=== PATIENT | male | born 2005 | race Caucasian/White ===

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

== ENCOUNTER 2024-12-22 13:14 | Outpatient (CLI) | payer OTHER, SELFPAY ==
[2024-12-22 13:49] LABS: Mean Corpuscular HGB Conc 34.1 g/dl (32-36); Mean Corpuscular Hemoglobin 30.2 pg (26-34); Mean Corpuscular Volume 88.7 fl (80-100); Mean Platelet Volume 9.2 fl (7.4-10.4); Platelet Count Result 206 k/mm3 (150-375); Red Blood Count 4.96 M/mm3 (4.6-6.20); Red Cell Distribution Width 11.5 % (11.5-14.5); White Blood Count 8.2 K/mm3 (4.5-10.0)
[2024-12-22 13:53] LABS: Alanine Aminotransferase 21 U/L (6-50); Albumin Level 4.9 g/dL (3.5-5.1); Alkaline Phosphatase 69 U/L (38-126); Anion Gap 9 mmol/L (4-12); Aspartate Amino Transferase 14 U/L (17-59); Bilirubin,Total 0.6 mg/dL (0.2-1.3); Blood Urea Nitrogen 7 mg/dL (9-20); Calcium 9.8 mg/dL (8.4-10.2); Carbon Dioxide 27 mmol/L (22-30); Chloride 105 mmol/L (98-107); Estimated Glomerular Filt Rate > 60; Glucose 97 mg/dL (65-110); Potassium 3.8 mmol/L (3.4-5.0); Sodium 141 mmol/L (137-145)
--- OUTSIDE RECORDS SUMMARY | 2024-12-22 14:24 | XMS_ITS | Continuity of Care Document ---
Author Organization [facility] Address [address] [employer] [facility] [place] [address] Phone Care Team Providers Care Quoter Name Role Phone Jayy Van MD Unavailable Unavailable Allergies, Adverse Reactions, Alerts Substance Reaction Status Criticality latex Itching of skin Active No Informati on Medications Medication Instructions Dosage Effective Dates (start - stop) Status Comments Cymbalta 60 mg capsule,delayed release take 1 capsule by oral route every day 60 MG - Active Imitrex 50 mg tablet take [...] Providers Copied on Encounter OFFICE/OUTPA TIENT VISIT, [facility], [address] [place], [place], [id number], tel:[phone] [facility] anxiety1 (chief complaint) migraine1 (chief complaint) Generalized Anxiety DisorderMigraine w/o aura, not intractable, w/o status migrainosus 4 Rehan Hope. [address] [place], [place], [id number] , [place]. tel:[phone] OFFICE/OUTPA TIENT VISIT, [facility], [address] [place], [id number], tel:[phone] [facility] anxiety1 (chief complaint) headache1 (chief complaint) Migraine w/o aura, not intractable, w/o status migrainosusGenerali zed Anxiety Disorder 4 Rehan Hope. [address], [place], [place], [id number] , . [phone] [facility], [address], [place], [place], [id number], [place] tel:[phone] [facility] No Information 4 Rehan Hope. [address], [place], [place], [address] , [place]. tel:[phone] PREV VISIT, NEW, AGE 18-39 [facility], [address], [place], [place], [address], [place] tel:[phone] [facility] physical (chief complaint) Encounter for general adult medical examination without abnormal findings 4 Rehan Hope. [address], [address], [place], [place], [address] , [place]. tel:[phone] Family History Family Member Type Diagnosis Age At Onset Mother Problem Alive and well Father Problem ? Stroke 40s Brother Problem Alive and well Mother Problem Migraines Sister Problem Depression Payers Payer name Insurance type Covered democrat ID Authoriza tion(s) No Information Social History [...] Date Complaint History Of Prese nt Illness anxiety1 Pt has chronic a nxiety and depression. pt states that effexor did help his anxiety but he feels more depressed while on effexor .Pt denies any suicidal or homicidal thought. pt denies any crying spells Pt also feels numb feeling emotionally. migraine1 Pt states that h is migraine actually is better and he states that imitrex did help his migraine Pt denies any head injury or waking up at night with headache Pt thinks that effexor did help his migraine. headache1 Pt has chronic m igraine headache [...] better recently pt denies any acute headache anxiety1 Pt has chronic a nxiety and depression Pt denies any suicidal or homicidal thought Pt denies any crying spells. Pt tried some SSRI in the past which did not work. physical Pt needs annual physical Pt has [...] Mental Status Date Cognitive Assessment Orientation - [place] ed to time, place, person, situation.
--- OUTSIDE RECORDS SUMMARY | 2024-12-22 14:24 | XMS_ITS | Patient Health Record ---
Author Organization [facility] Address [address] [facility] [address] [place] [address] Care Team Providers Care Adhesive Sprayer Name Role Phone Gerardo WELSH, Surjit Primary Care Provider UnavailViv Estes Unavailable [phone] Suresh Sukhdev Unavailable [phone] Glenroy Gordon Unavailable [phone] Allergies No Known Allergies Results Component Value Reference Range Notes UDT Reviewed date:10/11/2024 11:15:19 AM Interpretation: Performing Lab: Notes/Report: THC P 0 - 50 ng/ml Cocaine N 0 - 300 ng/ml Amphetamine N 0 - 1000 ng/ml Buprenorphine (BUP) N 0 - 10 ng/ml Secobarbital (Bar) N 0 - 300 ng/ml Oxazepam (BZO) N 0 - 300 ng/ml 6-ruqzznccny-4,8-qzlimwnk-9,3-diphenylpyrrolidine (ROMELIA P) N 0 - 300 ng/ml Methamphetamine (MET) N 0 - 1000 ng/ml Methylenedioxymethamphetamine (MDMA) N 0 - 500 ng/ml Morphine (MOP 300/[id number]) N 0 - 300 ng/ml Methadone (MTD) N 0 - 300 ng/ml Phencyclidine (PCP) N 0 - 25 ng/ml Nortriptyline (TCA) N 0 - 1000 ng/ml x N 0 - 300 ng/ml UDT Reviewed date:08/20/2024 09:59:24 AM Interpretation: Performing Lab: Notes/Report: THC POS 0 - 50 ng/ml Cocaine NEG 0 - 300 ng/ml Amphetamine NEG 0 - 1000 ng/ml Buprenorphine (BUP) NEG 0 - 10 ng/ml Secobarbital (Bar) NEG 0 - 300 ng/ml Oxazepam (BZO) POS 0 - 300 ng/ml 7-ngmriuufaq-2,6-shclkdhn-1,3-diphenylpyrrolidine (ROMELIA P) NEG 0 - 300 ng/ml Methamphetamine (MET) NEG 0 - 1000 ng/ml Methylenedioxymethamphetamine (MDMA) NEG 0 - 500 ng/ml Morphine (MOP 300/[id number]) NEG 0 - 300 ng/ml Methadone (MTD) NEG 0 - 300 ng/ml Phencyclidine (PCP) NEG 0 - 25 ng/ml Nortriptyline (TCA) NEG 0 - 1000 ng/ml Oxycodone NEG 0 - 300 ng/ml x NEG 0 - 300 ng/ml Reason For Referral No Information Medications Medication SIG (Take, Route, Frequency, Duration) Notes Start Date End Date Status hydrOXYzine Pamoate 25 MG 1 capsule Oral ly three times a day for 30 days Active hydrOXYzine Pamoate 25 MG 1 capsule at b edtime as needed Orally Once a day 08/20/2024 Active Sertraline HCl 100 MG 1 tablet Orally On ce a day for 30 days Active Social History Tobacco Use: Social History Observation Description Date Details (start date - stop date) Never Smoker NA - NA Sex Assigned At : Social History Observation Description Sex Assigned At Male Tobacco Control (Standard) Question Answer Notes Tobacco use: Nonsmoker Problems Problem Type SNOMED Code ICD Code Onset Dates Problem Status W/U Status Risk Notes Problem [id number] JAMES (generalized anxiety disorder) (F41.1) Active confirmed Problem Attention deficit hyperactivity disorder ([id number]) ADHD (attention deficit hyperactivity disorder), combined type (F90.2) Active confirmed The high cognitive scores suggest strong spatial planning, working memory, attention, and response inhibition skills.ADHD Assessment: The Part A score of 6 exceeds the threshold for ADHD, indicating symptoms consistent with ADHD. Part B's score of 7 further supports this.THC Positive: The presence of THC may affect cognitive functions, particularly executive functioning and attention regulation. Problem [id number] MDD (major depressive disorder), severe (F32.2) Active confirmed Vital Signs Heart Rate 87 /min 08/20/2024 Blood pressure diastolic 64 mm Hg 08/20/2024 Weight-kg 54.98 kg 08/20/2024 Blood pressure systolic 119 mm Hg 08/20/2024 Weight 121.2 lbs 08/20/2024 Procedures Procedure Date Ordered Date Performed Result Body Sit e ADHD Testing 09/25/2024 N/A Cannabis Cognitive Testing 09/25/2024 N/A Encounters Encounter Location Date Provider Diagnosis [facility], [place] [address] [facility] [address] [address] 08/20/2024 Glenroy Gordon MDD (major depressiv e disorder), severe F32.2 and JAMES (generalized anxiety disorder) F41.[address] [address] 09/25/2024 Viv Vasquez MDD (major depressiv e disorder), severe F32.2 ; JAMES (generalized anxiety disorder) F41.1 and ADHD (attention deficit hyperactivity disorder), combined type F90.[address] [address] 10/09/2024 Sukhdev Prince Lack of concentratio n R41.840 [facility] [address] [address] 10/13/2024 Viv Vasquez MDD (major depressiv e disorder), severe F32.2 ; JAMES (generalized anxiety disorder) F41.1 and ADHD (attention deficit hyperactivity disorder), combined type F90.[address] [address] 11/12/2024 Viv Vasquez [address] [address] 11/17/2024 Viv Vasquez Assessments Encounter Date Diagnosis (ICD Code) Assessment Notes Treatment Notes Treatment Clinical Notes Section Notes 08/20/2024 JAMES (generalized anxiety disorder) (ICD-10 - F41.1) 1. Major Depressive Disorder (MDD) - Plan: Restart sertraline 50 mg daily for 30 days. Encourage the patient to stay on the medication for 4 to 6 weeks to assess its effectiveness. Schedule a follow-up appointment in one month to evaluate the response to sertraline. Educate the patient on the mechanism of action and potential side effects of sertraline. 2. Generalized Anxiety Disorder (JAMES) - Plan: Discontinue clonazepam and initiate hydroxyzine as needed for anxiety, up to 3 times a day, with a maximum of 2 tablets per dose. Encourage the patient to take hydroxyzine when anxiety starts, not at its peak. Advise the patient to limit caffeine intake to under 400 mg per day. 3. Attention Deficit Hyperactivity Disorder (ADHD) - Plan: Continue Vyvanse as prescribed. Monitor the patient's response during the follow-up appointment. 4. Dissociative symptoms - Plan: Encourage the patient to increase the frequency of therapy sessions to address the underlying causes of dissociation and anxiety. Work with the therapist to identify triggers and develop coping strategies. 5. Suicidal ideation - Plan: Provide the patient with the crisis number (988) for immediate support if needed. Encourage the patient to reach out to his support system, including his father and therapist. Offer the option to come in for an unscheduled appointment if necessary. discussed when to seek emergency services. - patient lives with family and has a support system. 6. Sleep disturbances - Plan: Monitor sleep quality during the follow-up appointment. Consider alternative sleep aids if sleep disturbances persist. 7. Medication management - Plan: Educate the patient on the importance of medication adherence and the potential benefits of treatment. Encourage the patient to discuss any concerns or side effects during follow-up appointments. Address the patient's concerns about researching medication side effects online and encourage discussing concerns with healthcare providers instead of relying on internet sources. 08/20/2024 MDD (major depressive disorder), severe (ICD-10 - F32.2) 1. Major Depressive Disorder (MDD) - Plan: Restart sertraline 50 mg daily for 30 days. Encourage the patient to stay on the medication for 4 to 6 weeks to assess its effectiveness. Schedule a follow-up appointment in one month to evaluate the response to sertraline. Educate the patient on the mechanism of action and potential side effects of sertraline. 2. Generalized Anxiety Disorder (JAMES) - Plan: Discontinue clonazepam and initiate hydroxyzine as needed for anxiety, up to 3 times a day, with a maximum of 2 tablets per dose. Encourage the patient to take hydroxyzine when anxiety starts, not at its peak. Advise the patient to limit caffeine intake to under 400 mg per day. 3. Attention Deficit Hyperactivity Disorder (ADHD) - Plan: Continue Vyvanse as prescribed. Monitor the patient's response during the follow-up appointment. 4. Dissociative symptoms - Plan: Encourage the patient to increase the frequency of therapy sessions to address the underlying causes of dissociation and anxiety. Work with the therapist to identify triggers and develop coping strategies. 5. Suicidal ideation - Plan: Provide the patient with the crisis number (988) for immediate support if needed. Encourage the patient to reach out to his support system, including his father and therapist. Offer the option to come in for an unscheduled appointment if necessary. discussed when to seek emergency services. - patient lives with family and has a support system. 6. Sleep disturbances - Plan: Monitor sleep quality during the follow-up appointment. Consider alternative sleep aids if sleep disturbances persist. 7. Medication management - Plan: Educate the patient on the importance of medication adherence and the potential benefits of treatment. Encourage the patient to discuss any concerns or side effects during follow-up appointments. Address the patient's concerns about researching medication side effects online and encourage discussing concerns with healthcare providers instead of relying on internet sources. 09/25/2024 MDD (major depressive disorder), severe (ICD-10 - F32.2) SSRI/SNRI side effects discussed including but not limited to, gastric upset, nausea, vomiting, diarrhea and/or constipation, weight changes, sexual side effects including loss of libido, increased suicidal thoughts/behaviors in children and young adults, and serotonin syndrome. SSRIs and Marijuana: Cannabidiol, or CBD, in marijuana can increase the levels of SSRIs in your bloodstream because CBD blocks your body from clearing the antidepressant as quickly as normal. Having increased levels of serotonin in your body from SSRI use can cause a potentially fatal condition called serotonin syndrome. 10/09/2024 Lack of concentration (ICD-10 - R41.840) Assessment Summary for 18-Year-Old Male Chun Findings: Outside Typical Range: Cognitive markers indicate atypical performance. ASRS ADHD Screening: Part A Score = 6 (indicative), Part B Score = 7. Cognitive Performance: Spatial Planninth percentile (above average) Token Search (Working Memory): 92nd percentile (high) Feature Match (Attention): 92nd percentile (high) Double Trouble (Response Inhibition): 96th percentile (very high) Interpretation: The high cognitive scores suggest strong spatial planning, working memory, attention, and response inhibition skills. ADHD Assessment: The Part A score of 6 exceeds the threshold for ADHD, indicating symptoms consistent with ADHD. Part B's score of 7 further supports this. THC Positive: The presence of THC may affect cognitive functions, particularly executive functioning and attention regulation. Recommendations: Consider Non-Stimulant ADHD Medications: Given the cognitive profile and THC use, non-stimulant ADHD medications (e.g., atomoxetine, guanfacine) may be more suitable. THC Cessation: THC can negatively impact executive function, working memory, and attention. Stopping use may improve cognitive clarity and ADHD symptoms. Behavioral and Lifestyle Interventions: Cognitive Behavioral Therapy (CBT) for ADHD symptom management. Structured Routines to enhance executive function and reduce inattention. Physical Exercise to improve focus and impulse control. 10/13/2024 JAMES (generalized anxiety disorder) (ICD-10 - F41.1) 10/13/2024 MDD (major depressive disorder), severe (ICD-10 - F32.2) SSRI/SNRI side effects discussed including but not limited to, gastric upset, nausea, vomiting, diarrhea and/or constipation, weight changes, sexual side effects including loss of libido, increased suicidal thoughts/behaviors in children and young adults, and serotonin syndrome. SSRIs and Marijuana: Cannabidiol, or CBD, in marijuana can increase the levels of SSRIs in your bloodstream because CBD blocks your body from clearing the antidepressant as quickly as normal. Having increased levels of serotonin in your body from SSRI use can cause a potentially fatal condition called serotonin syndrome. 10/13/2024 ADHD (attention deficit hyperactivity disorder), combined type (ICD-10 - F90.2) The high cognitive scores suggest strong spatial planning, working memory, attention, and response inhibition skills.ADHD Assessment: The Part A score of 6 exceeds the threshold for ADHD, indicating symptoms consistent with ADHD. Part B's score of 7 further supports this.THC Positive: The presence of THC may affect cognitive functions, particularly executive functioning and attention regulation. Discussed risks/benefits/alt ernatives to atomoxetine, including GI side effects, weight loss, irritability, constipation, sexual dysfunction, increase in blood pressure and liver damage. Patient denies any h/o cardiovascular disease, including hypertension, tachyarrhythmias. no stimulant, cannabis use 09/25/2024 JAMES (generalized anxiety disorder) (ICD-10 - F41.1) 09/25/2024 ADHD (attention deficit hyperactivity disorder), combined type (ICD-10 - F90.2) Pre-treatment evaluation and contraindications Before initiating treatment with a stimulant in adults, we review their cardiovascular history, including chest pain, palpitations, syncope, myocardial infarction, arrhythmia, valvular disease, and family history. We measure blood pressure and pulse in all patients and obtain an electrocardiogram (ECG) in individuals with cardiac history or cardiac symptoms such as palpitations or chest pain. In individuals with a cardiac history, or when findings outside normal limits are seen, we consult a level designer to determine whether the results are sufficiently severe to avoid these medications. We also rule out COURT; if you are using cannabis, are heavy alcohol, or are using other street drugs and have a history of COURT, than we consider non-stimulant treatment. We also do routine and random UDT If you refuse or fail to give urine for urine, then we will not prescribe controlled substances. If your urine comes positive for medicine (which are not prescribed to you) and illicit drugs (including Cannabis) then we will not prescribe a controlled substance There is a charge for Stimulant refills DIAGNOSIS PENDING EVAL 08/20/2024 Other Learning About Depression Screening material was printed Assessment and plan reviewed with patient Call for problems with medication, side effects or need for dosage change Compliance issues reviewed Discussed the risks/benefits of this medication Discussed medication side effects Return if symptoms worsen Treatment options reviewed. discussed that it can take weeks to see full therapeutic effects of psychotropic medications. discussed when to seek emergency services. discussed crisis prevention hotline 988. Learning About Depression Screening material was printed 1. Major Depressive Disorder (MDD) - Plan: Restart sertraline 50 mg daily for 30 days. Encourage the patient to stay on the medication for 4 to 6 weeks to assess its effectiveness. Schedule a follow-up appointment in one month to evaluate the response to sertraline. Educate the patient on the mechanism of action and potential side effects of sertraline. 2. Generalized Anxiety Disorder (JAMES) - Plan: Discontinue clonazepam and initiate hydroxyzine as needed for anxiety, up to 3 times a day, with a maximum of 2 tablets per dose. Encourage the patient to take hydroxyzine when anxiety starts, not at its peak. Advise the patient to limit caffeine intake to under 400 mg per day. 3. Attention Deficit Hyperactivity Disorder (ADHD) - Plan: Continue Vyvanse as prescribed. Monitor the patient's response during the follow-up appointment. 4. Dissociative symptoms - Plan: Encourage the patient to increase the frequency of therapy sessions to address the underlying causes of dissociation and anxiety. Work with the therapist to identify triggers and develop coping strategies. 5. Suicidal ideation - Plan: Provide the patient with the crisis number (988) for immediate support if needed. Encourage the patient to reach out to his support system, including his father and therapist. Offer the option to come in for an unscheduled appointment if necessary. discussed when to seek emergency services. - patient lives with family and has a support system. 6. Sleep disturbances - Plan: Monitor sleep quality during the follow-up appointment. Consider alternative sleep aids if sleep disturbances persist. 7. Medication management - Plan: Educate the patient on the importance of medication adherence and the potential benefits of treatment. Encourage the patient to discuss any concerns or side effects during follow-up appointments. Address the patient's concerns about researching medication side effects online and encourage discussing concerns with healthcare providers instead of relying on internet sources. 09/25/2024 Other Increase sertraline to 100mg daily for mood, anxiety. Patient educated on all medications including potential benefits, side effects, risks. Educated on proper dosing schedule and importance of compliance. Discussed office policy for stimulants and cannabis use. -Schedule for ADHD and cannabis cognitive testing prior to initiating medication. ADHD symptoms could be caused by cannabis use, anxiety and depression. -Assessment and treatment plan reviewed with patient. -Compliance with treatment plan importance discussed. -Discussed the risks/benefit s of this medication -Discussed medication side effects. -Contact office if symptoms worsen. -Discussed that it can take up to 6-8 weeks to see full therapeutic effects of psychotropic medications. -Crisis prevention hotline 981. 10/13/2024 Other ADHD evaluation reviewed, supportive of diagnosis --recommend limiting cannabis use, likely contributing to cognitive dysfunction. Start atomoxetine 25mg daily for two weeks then 40mg daily for ADHD management. Patient educated on all medications including potential benefits, side effects, risks. Educated on proper dosing schedule and importance of compliance. -Assessment and treatment plan reviewed with patient. -Compliance with treatment plan importance discussed. -Discussed the risks/benefit s of this medication -Discussed medication side effects. -Contact office if symptoms worsen. -Discussed that it can take up to 6-8 weeks to see full therapeutic effects of psychotropic medications. -Crisis prevention hotline 341. Plan Of Treatment Pending Test Test Name Order Date ADHD Testing 09/25/2024 Cannabis Cognitive Testing 09/25/2024 Insurance Providers Payer Name Payer Address Payer Phone Subscriber Number Group Number Insured Name Patient Relationship to Insured Coverage Start Date Coverage End Date [facility] [address] [place] [address] [id number] CLAUDINE HOBSON Child - Insured has Financial Responsibility Medical (General) History Medical History History ICD Code migraines depression anxiety adhd Hospitalization History Reason Date(Month/Year) Admits to being hospitalized once in
== END 2024-12-22 13:15 | disposition home or self-care (01) ==
PROVIDERS: PCP Family Medicine; Visit Provider Family Medicine
DX: F40.01 Agoraphobia with panic disorder (principal)
CPT/HCPCS: 36415; 80053; 84443; 85027

== ENCOUNTER 2025-04-30 14:06 | Outpatient (CLI) | payer OTHER, SELFPAY ==
--- OUTSIDE RECORDS SUMMARY | 2024-04-02 10:54 | XMS_ITS | Continuity of Care Document ---
Author Organization [facility] Address [address] [facility] [place] [address] Phone Care Team Providers Care Manager Culture Name Role Phone Jayy Van MD Unavailable Unavailable Allergies, Adverse Reactions, Alerts Substance Reaction Status Criticality latex Itching of skin Active No Informati on Medications Medication Instructions Dosage Effective Dates (start - stop) Status Comments Cymbalta 60 mg capsule,delayed release take 1 capsule by oral route every day - Active Imitrex 50 mg tablet take 1 tablet by oral route as needed 50 MG - Active take one at onset of headache, may repeat x one in two hours max 2/24 hours Procedures Procedure Date OFFICE/OUTPATIENT VISIT, EST OFFICE/OUTPATIENT VISIT, EST PREV VISIT, NEW, AGE 18-39 Advance Directives Directive Yes / No Effective Date File Name No Information Encounters Encounter Description Practice Location Reason(s) For Visit Diagnoses Date Provider Providers Copied on Encounter OFFICE/OUTPA TIENT VISIT, [facility], [address] [place], [place], [id number], tel:[phone] [facility] anxiety1 (chief complaint) migraine1 (chief complaint) Generalized Anxiety DisorderMigraine w/o aura, not intractable, w/o status migrainosus 4 Rehan Hope. [address] [place], [place], [id number] , [place]. tel:[phone] OFFICE/OUTPA TIENT VISIT, [facility], [address] [place], [id number], tel:[phone] [facility] anxiety1 (chief complaint) headache1 (chief complaint) Migraine w/o aura, not intractable, w/o status migrainosusGenerali zed Anxiety Disorder 4 Rehan Hope. [address], [place], [place], [address] , . [phone] [facility], [address], [place], [place], [address], tel:[phone] [facility] No Information 4 Rehan Jayy. [address], [place], [place], [address] , [place]. [phone] PREV VISIT, NEW, AGE 18-39 [facility], [address], [place], [place], [address], [place] tel:[phone] [facility] physical (chief complaint) Encounter for general adult medical examination without abnormal findings 4 Rehan Hope. [address], [place], [place], [address] , [place]. [phone] Family History Family Member Type Diagnosis Age At Onset Mother Problem Alive and well Father Problem ? Stroke 40s Brother Problem Alive and well Mother Problem Migraines Sister Problem Depression Payers Payer name Insurance type Covered green party ID Authoriza tion(s) No Information Social History Type Description Quantity Date Captured Comments Alcohol Use Details 2 drinks socially Caffeine Use Details Unknown Tobacco Use Status Smoker Smoking Status Current every day smoker Sex Male Vital Signs Date / Time: Height Weight BMI Pulse Rate Blood Pressure Temperature Respiratory Rate Body Surface Area Head Circumference BMI percentile Pulse Ox Inhaled Ox 3:55 PM 68.00 in 122.80 lbs 18.6 7 kg/m eter (2) 77 /min 98/62 mm[Hg] 97.7 F 16 /min Chief Complaint And Reason For Visit From encounter dated '04/02/2024 15:54'. anxiety1 (chief complaint). Description: Pt has chronic anxiety and depression. pt states that effexor did help his anxiety but he feels more depressed while on effexor .Pt denies any suicidal or homicidal thought. pt denies any crying spells Pt also feels numb feeling emotionally. migraine1 (chief complaint). Description: Pt states that his migraine actually is better and he states that imitrex did help his migraine Pt denies any head injury or waking up at night with headachePt thinks that effexor did help his migraine. Plan Of Treatment Date Type Action Status No Information History Of Present Illness Encounter Date Complaint History Of Prese nt Illness migraine1 Pt states that h is migraine actually is better and he states that imitrex did help his migraine Pt denies any head injury or waking up at night with headache Pt thinks that effexor did help his migraine. anxiety1 Pt has chronic a nxiety and depression. pt states that effexor did help his anxiety but he feels more depressed while on effexor .Pt denies any suicidal or homicidal thought. pt denies any crying spells Pt also feels numb feeling emotionally. anxiety1 Pt has chronic a nxiety and depression Pt denies any suicidal or homicidal thought Pt denies any crying spells. Pt tried some SSRI in the past which did not work. headache1 Pt has chronic m igraine headache since he was 4-5 years ago pt denies any head injury Pt c/o throbbing headache starting right temporal area and then spreading to whole head with nausea and photophobia and also he is very sensitive to sounds. Pt used to have migraine 2-3 per week but he has been having migraine almost daily during last two months Pt denies any change in activity Pt denies any trigger factor. Pt denies any head injury or waking up at night with headache Pt usually wakes up ok but starts to have headache shortly afterward. Pt has been taking ibuprofen and other oTC meds but has not been helping Pt never saw a doctor for headache. pt never tried amitriptyline and ultram Pt is afraid of the side effects with above meds Pt states that his headache is slightly better recently pt denies any acute headache physical Pt needs annual physical Pt has chronic migraine headache since he was 4-5 years ago pt denies any head injury Pt c/o throbbing headache starting right temporal area and then spreading to whole head with nausea and photophobia and also he is very sensitive to sounds. Pt used to have migraine 2-3 per week but he has been having migraine almost daily during last two months Pt denies any change in activity Pt denies any trigger factor. Pt denies any head injury or waking up at night with headache Pt usually wakes up ok but starts to have headache shortly afterward. Pt has been taking ibuprofen and other oTC meds but has not been helping Pt never saw a doctor for headache. Pt has chronic anxiety pt denies any depression or any suicidal or homicidal thought Pt denies any crying spells Pt tried lexapro, viibryd, zoloft and many pills but none helped. Pt also has chronic insomnia as well. Instructions Date Instruction Additional Infor natalie No Information Assessments Type Assessment Date assessment Generalized Anxiety Disorder Mar assessment Migraine w/o aura, not intractab le, w/o status migrainosus Mental Status Date Cognitive Assessment Orientation - [place] ed to time, place, person, situation.
--- OUTSIDE RECORDS SUMMARY | 2024-10-08 08:30 | XMS_ITS ---
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 Name Role Phone Gerardo WELSH, Surjit Primary Care Provider Viv Henry Unavailable [phone] REASON FOR VISIT Pt showed but decided to R/S due to not having testing done Social History Sex Assigned At : Social History Observation Description Sex Assigned At Male Encounters Encounter Location Date Provider Diagnosis [facility] [employer] [place] [address] [facility] [address] [place] [address] 10/08/2024 Viv Davila Plan Of Treatment No Information Progress Notes * JACKELINE HOBSON SDOB: [birth year] (19 yo M)Acc No.[id number]:10/08/2024 Patient: JACKELINE OLSON Provider: OTRRES HOFFMANN :2005 A ge:18 Y S ex:Male Date:10/08/2024 Phone: [facility] [id number] Pcp:Surjit Carrillo MD Subjective: * Chief Complaints: * P t showed but decided to R/S due to not having testing done Billing Information: * Procedure Codes: * Electronic signature of TORRES Chawla on 04/30/2025 at 02:13 PM CDT Sign off status: Pending * Provider: TORRES HOFFMANN Date: 0 10/08/2024 Generated for Cadencei ng/Fameryg/eTransmitting on: 0 04/30/2025 02:13 PM CDT
--- NOTE | ~2025-04-30 | MR_ITS ---
EXAMINATION: MR brain/brain stem wo con DATE: 04/30/2025 14:54 INDICATION: Migraine, unspecified, not intractable. TECHNIQUE: Magnetic resonance imaging (MRI) of the brain and brainstem was performed without intravenous contrast. COMPARISON: None. FINDINGS: There is no intracranial hemorrhage, acute infarction, or abnormal intracranial mass lesion. The ventricles are normal in size. There is mild mucosal thickening in the ethmoid sinuses. The orbits are normal. The mastoid air cells are normal. IMPRESSION: 1. Normal brain. Reviewed, dictated and finalized at location K. IMPRESSION: 1. Normal brain.
--- OUTSIDE RECORDS SUMMARY | 2025-04-30 14:14 | XMS_ITS | Patient Health Record ---
Author Organization [facility] [place] Address [address] [facility] [address] [place] [address] Care Team Providers Care Handyman Name Role Phone Gerardo WELSH, Surjit Primary Care Provider Unavaila Viv Huff Unavailable [phone] SureshMichelSukhdev Unavailable [phone] Glenroy Gordon Unavailable [phone] Allergies No Known Allergies Results Component Value Reference Range Notes UDT Reviewed date:08/20/2024 09:59:24 AM Interpretation: Performing Lab: Notes/Report: THC POS 0 - 50 ng/ml Cocaine NEG 0 - 300 ng/ml Amphetamine NEG 0 - 1000 ng/ml Buprenorphine (BUP) NEG 0 - 10 ng/ml Secobarbital (Bar) NEG 0 - 300 ng/ml Oxazepam (BZO) POS 0 - 300 ng/ml 0-ecvlzdqyey-7,3-dzsmfuqb-0,3-diphenylpyrrolidine (ROMELIA P) NEG 0 - 300 ng/ml Methamphetamine (MET) NEG 0 - 1000 ng/ml Methylenedioxymethamphetamine (MDMA) NEG 0 - 500 ng/ml Morphine (MOP 300/[id number]) NEG 0 - 300 ng/ml Methadone (MTD) NEG 0 - 300 ng/ml Phencyclidine (PCP) NEG 0 - 25 ng/ml Nortriptyline (TCA) NEG 0 - 1000 ng/ml Oxycodone NEG 0 - 300 ng/ml x NEG 0 - 300 ng/ml UDT Reviewed date:10/11/2024 11:15:19 AM Interpretation: Performing Lab: Notes/Report: THC P 0 - 50 ng/ml Cocaine N 0 - 300 ng/ml Amphetamine N 0 - 1000 ng/ml Buprenorphine (BUP) N 0 - 10 ng/ml Secobarbital (Bar) N 0 - 300 ng/ml Oxazepam (BZO) N 0 - 300 ng/ml 4-rcinivnxwo-8,5-crqbdyro-6,3-diphenylpyrrolidine (ROMELIA P) N 0 - 300 ng/ml Methamphetamine (MET) N 0 - 1000 ng/ml Methylenedioxymethamphetamine (MDMA) N 0 - 500 ng/ml Morphine (MOP 300/AWH9709) N 0 - 300 ng/ml Methadone (MTD) N 0 - 300 ng/ml Phencyclidine (PCP) N 0 - 25 ng/ml Nortriptyline (TCA) N 0 - 1000 ng/ml x N 0 - 300 ng/ml Reason For Referral No Information Medications Medication SIG (Take, Route, Frequency, Duration) Notes Start Date End Date Status hydrOXYzine Pamoate 25 MG Capsule 1 capsule Orally three times a day; Duration: 30 days Active hydrOXYzine Pamoate 25 MG Capsule 1 capsule at bedtime as needed Orally Once a day 08/20/2024 Active Sertraline HCl 100 MG Tablet 1 tablet Orally Once a day; Duration: 30 days Active Social History Tobacco Use: Social History Observation Description Date Details (start date - stop date) Never Smoker NA - NA Sex Assigned At : Social History Observation Description Sex Assigned At Male Social History Drug/Alcohol: Social Info Question Answer Notes Drugs Have you used drugs other than those for medical reasons in the past 12 months? No Tobacco Use: Social Info Question Answer Notes Tobacco Control (Standard) Tobacco use: Nonsmoker Additional Details Category Social Info Options Details Drug/Alcohol: Do you smoke marijuana? Den ies, urine drug screen + for THC on 08/20/2025 Do you drink alcohol? No Problems Problem Type SNOMED Code ICD Code Onset Dates Problem Status W/U Status Risk Notes Problem Generalized anxiety disorder (81442800) JAMES (generalized anxiety disorder) (F41.1) Active confirmed Problem Attention deficit hyperactivity disorder (730736935) ADHD (attention deficit hyperactivity disorder), combined type [...] particularly executive functioning and attention regulation. Problem Severe major depression, single episode, without psychotic features (29002939) MDD (major depressive disorder), severe (F32.2) Active confirmed Vital Signs Heart Rate 87 /min 08/20/2024 Blood pressure diastolic 64 mm Hg 08/20/2024 Weight-kg 54.98 kg 08/20/2024 Blood pressure systolic 119 mm Hg 08/20/2024 Weight 121.2 lbs 08/20/2024 Procedures Procedure Date Ordered Date Performed Result Body Sit e ADHD Testing 09/25/2024 N/A Cannabis Cognitive Testing 09/25/2024 N/A Encounters Encounter Location Date Provider Diagnosis [facility] [address] [address] 08/20/2024 Glenroy Gordon MDD (major depressiv e disorder), severe F32.2 and JAMES (generalized anxiety disorder) F41.1 [facility] [address] [facility] [address] [facility] [address] [place] [address] 09/25/2024 Viv Davila MDD (major depressiv e disorder), severe F32.2 ; JAMES (generalized anxiety disorder) F41.1 and ADHD (attention deficit hyperactivity disorder), combined type F90.2 [facility] [address] [address] 10/09/2024 Sukhdev Prince Lack of concentratio n R41.840 [facility] [address] [address] 10/13/2024 Viv Davila MDD (major depressiv e disorder), severe F32.2 ; JAMES (generalized anxiety disorder) F41.1 and ADHD (attention deficit hyperactivity disorder), combined type F90.2 [facility] [address] [facility] [address] [place] [address] 11/12/2024 Viv Davila [facility] [address] [facility] [address] [address] 11/17/2024 Viv Davila [facility] [address] [facility] [address] [facility] [address] [place] [address] 04/22/2025 Viv Davila Assessments Encounter Date Diagnosis (ICD Code) Assessment [...] Provide the patient with the crisis number (987) for immediate support if needed. Encourage the [...] normal limits are seen, we consult a mails supervisor to determine whether the results are sufficiently [...] Provide the patient with the crisis number (980) for immediate support if needed. Encourage the [...] effects of psychotropic medications. -Crisis prevention hotline 988. 10/13/2024 Other ADHD evaluation reviewed, supportive of [...] effects of psychotropic medications. -Crisis prevention hotline 988. Plan Of Treatment Pending Test Test Name Order Date ADHD Testing 09/25/2024 Cannabis Cognitive Testing 09/25/2024 Insurance Providers Payer Name Payer Address Payer Phone Subscriber Number Group Number Insured Name Patient Relationship to Insured Coverage Start Date Coverage End Date [facility] [address] [place] [phone] [id number] CLAUDINE HOBSON Child - Insured has Financial Responsibility Medical (General) History Medical History History ICD Code migraines depression anxiety adhd Hospitalization History Reason Date(Month/Year) Admits to being hospitalized once in
== END 2025-04-30 14:07 | disposition home or self-care (01) ==
PROVIDERS: PCP Family Medicine
DX: G43.901 Migraine, unspecified, not intractable, with status migrainosus (principal)
CPT/HCPCS: 70551